=== PATIENT | female | born 1990 | race Caucasian/White ===

== ENCOUNTER 2019-06-01 20:29 | Outpatient (CLI) | payer MEDICAID ==
[~2019-06-01] VITALS: Ht 167.6 cm; Wt 98.9 kg
[2019-06-01 20:49] LABS: MICROSCOPIC INDICATED
[2019-06-01 20:53] VITALS: BP 123/78
[2019-06-01 21:02] LABS: AMPHETAMINE SCREEN, URINE Negative (Negative); BARBITURATE SCREEN, URINE Negative (Negative); BENZODIAZEPINE SCREEN, URINE Negative (Negative); CANNABINOID SCREEN, URINE Negative (Negative); COCAINE SCREEN, URINE Negative (Negative); METHADONE SCREEN, URINE Negative (Negative); OPIATE SCREEN, URINE Negative (Negative)
== END 2019-06-01 21:30 | disposition home or self-care (01) ==
LOC: LDOP 20:29
PROVIDERS: ATTEND Student in an Organized Health Care Education/Training Program
DX: O36.8130 Decreased fetal movements, third trimester, not applicable or unspecified (principal); Z3A.40 40 weeks gestation of pregnancy; Z88.0 Allergy status to penicillin
CPT/HCPCS: 59025; 80307; 81001; 87086; 99201; G0463

== ENCOUNTER 2019-06-17 19:16 | Inpatient (IN) | payer MEDICAID ==
[~2019-06-17] VITALS: Ht 167.6 cm; Wt 97.8 kg
[2019-06-17 19:30] VITALS: BP 128/87
[2019-06-17 19:45] VITALS: BP 128/87
[2019-06-17 20:27] LABS: MICROSCOPIC INDICATED
[2019-06-17 20:30] LABS: ALANINE AMINOTRANSFERASE 168 U/L (12-78); ANION GAP 9 mmol/L (5-15); CHLORIDE 105 mmol/L (98-107); CREATININE 1.06 mg/dL (0.55-1.02)
[2019-06-17 20:32] LABS: AMPHETAMINE SCREEN, URINE Negative (Negative); BARBITURATE SCREEN, URINE Negative (Negative); BENZODIAZEPINE SCREEN, URINE Negative (Negative); CANNABINOID SCREEN, URINE Negative (Negative); COCAINE SCREEN, URINE Negative (Negative); METHADONE SCREEN, URINE Negative (Negative); OPIATE SCREEN, URINE Negative (Negative); PROTEIN/CREATININE RATIO,URINE 249 (0-200); TOTAL PROTEIN,URINE RANDOM 42 mg/dL (0-12)
[2019-06-17 20:32] LABS: ALKALINE PHOSPHATASE 246 U/L (45-117); BILIRUBIN, DIRECT < 0.1 mg/dL (0.1-0.2); BILIRUBIN,TOTAL 0.2 mg/dL (0.2-1.0)
[2019-06-17] MEDS ORDERED: OXYTOCIN 30U/ 0.9% NaCL 500ML 500 ML IV ONE (21:07)
[2019-06-17] MEDS: D5%-LACTATED RINGERS 1,000 ML IV SCH (21:07)
[2019-06-17] MEDS ORDERED: MAGNESIUM SULF. PMX 20GM/500ML 500 ML IV SCH (21:07)
[2019-06-17] MEDS ORDERED: OXYTOCIN 30U/ 0.9% NaCL 500ML 500 ML IV PRN (21:07)
[2019-06-17 21:09] LABS: BASOPHILS % (AUTO) 0 % (0-1); EOSINOPHILS # (AUTO) 0.01 x10^3/uL (0-0.4); EOSINOPHILS % (AUTO) 0 % (1-7); LYMPHOCYTES # (AUTO) 1.53 x10^3/uL (1-3.4); LYMPHOCYTES % (AUTO) 26 % (22-44); MD MORPH REVIEW ONLY; MEAN CORPUSCULAR HEMOGLOBIN 26.3 pg (27.0-34.8); MEAN CORPUSCULAR HGB CONC 33.3 g/dL (32.4-35.8); MEAN CORPUSCULAR VOLUME 78.9 fL (80-100); MEAN PLATELET VOLUME 11.9 fL (7.4-10.4); MONOCYTES # (AUTO) 0.25 x10^3/uL (0.2-0.8); MONOCYTES % (AUTO) 4 % (2-9); NEUTROPHILS # (AUTO) 4.09 x10^3/uL (1.8-6.8); NEUTROPHILS % (AUTO) 70 % (42-75); PLATELET COUNT 145 x10^3/uL (130-400); RED CELL DISTRIBUTION WIDTH 14.6 % (9.6-15.2)
[2019-06-17 21:11] LABS: HYPOCHROMIA 1+; MICROCYTOSIS 1+; POLYCHROMASIA 1+
[2019-06-17 21:12] LABS: <PLATELET ESTIMATE> ADEQUATE; LARGE PLATELETS 1+
[2019-06-17] MEDS ORDERED: MISOPROSTOL 25 MCG TABLET VG PRN (21:30)
[2019-06-17] MEDS ORDERED: SODIUM CITRATE/CITRIC ACID 30 ML UDC PO PRN (21:30)
[2019-06-17] MEDS ORDERED: METOCLOPRAMIDE 5 MG/ML, 2ML IVPush PRN (21:30)
[2019-06-17] MEDS ORDERED: ONDANSETRON 2MG/ML, 2ML IVPush PRN (21:30)
[2019-06-17] MEDS ORDERED: FENTANYL PF 100 MCG/2ML IVPush PRN (21:30)
[2019-06-17] MEDS ORDERED: TERBUTALINE 1 MG/ML, 1ML SQ PRN (21:30)
[2019-06-17] MEDS ORDERED: MAGNESIUM SULFATE PMX 4GM/100M 100 ML IVPB ONE (21:30)
[2019-06-17] MEDS ORDERED: TERBUTALINE 1 MG/ML, 1ML IVPush PRN (21:30)
[2019-06-17] MEDS ORDERED: FENTANYL PF 100 MCG/2ML IV PRN (21:30)
[2019-06-17] MEDS ORDERED: MAGNESIUM SULFATE 3 GM in SODIUM CHLORIDE 0.9% 100 ML IV ONE (22:00)
[2019-06-17] MEDS ORDERED: NEWBORN KIT ONE (22:52)
[2019-06-17] MEDS ORDERED: MISOPROSTOL 200 MCG TABLET ONE (22:52)
[2019-06-17] MEDS ORDERED: LIDOCAINE 1%, 20ML ONE (22:52)
[2019-06-17] MEDS: VANCOMYCIN PMX 1GM/200ML 200 ML IVPB SCH (23:03)
[2019-06-17] MEDS: LACTATED RINGERS 1,000 ML IV SCH (23:03)
[2019-06-17] MEDS ORDERED: MISOPROSTOL 25 MCG TABLET ONE (23:32)
[2019-06-18] MEDS ORDERED: DIPHENHYDRAMINE 50 MG/ML, 1ML ONE (00:10)
[2019-06-18] MEDS ORDERED: DIPHENHYDRAMINE 50 MG/ML, 1ML IVPush PRN ×2 (00:10→08:30)
[2019-06-18] MEDS ORDERED: ACETAMINOPHEN 325 MG TABLET ONE ×3 (02:39→17:31)
[2019-06-18 04:02] LABS: ANION GAP 9 mmol/L (5-15); CHLORIDE 106 mmol/L (98-107)
[2019-06-18 04:06] LABS: ALANINE AMINOTRANSFERASE 154 U/L (12-78); ALKALINE PHOSPHATASE 229 U/L (45-117); BILIRUBIN,TOTAL 0.3 mg/dL (0.2-1.0); CREATININE 1.05 mg/dL (0.55-1.02); TOTAL PROTEIN 5.8 g/dL (6.4-8.2)
[2019-06-18] MEDS: LACTATED RINGERS 1,000 ML IV SCH (04:10)
[2019-06-18 04:26] LABS: MEAN CORPUSCULAR HEMOGLOBIN 25.9 pg (27.0-34.8); MEAN CORPUSCULAR HGB CONC 32.4 g/dL (32.4-35.8); MEAN CORPUSCULAR VOLUME 80.1 fL (80-100); MEAN PLATELET VOLUME 15.2 fL (7.4-10.4); PLATELET COUNT 180 x10^3/uL (130-400); RED BLOOD COUNT 4.06 x10^6/uL (3.82-5.3); RED CELL DISTRIBUTION WIDTH 14.7 % (9.6-15.2)
[2019-06-18 04:28] LABS: BASOPHILS # (AUTO) 0.03 x10^3/uL (0-0.1); BASOPHILS % (AUTO) 0 % (0-1); EOSINOPHILS % (AUTO) 0 % (1-7); LYMPHOCYTES # (AUTO) 2.13 x10^3/uL (1-3.4); LYMPHOCYTES % (AUTO) 26 % (22-44); MD SCAN; MONOCYTES % (AUTO) 5 % (2-9); NEUTROPHILS # (AUTO) 5.68 x10^3/uL (1.8-6.8); NEUTROPHILS % (AUTO) 69 % (42-75)
[2019-06-18] MEDS: D5%-LACTATED RINGERS 1,000 ML IV SCH (05:07)
[2019-06-18] MEDS ORDERED: FENTANYL/BUPIV./NS/PF 250 ML EPIDCONT SCH ×2 (05:41→08:10)
[2019-06-18] MEDS ORDERED: FENTANYL PF 100 MCG/2ML ONE (05:43)
[2019-06-18] MEDS ORDERED: LACTATED RINGERS 1,000 ML IVBOLUS PRN ×2 (06:00→08:30)
[2019-06-18] MEDS ORDERED: FENTANYL PF 500 MCG, BUPIVACAINE/PF 0.5%, 30ML 62.5 ML in SODIUM CHLORIDE 0.9% 177.5 ML EPIDCONT SCH (06:00)
[2019-06-18] MEDS ORDERED: ACETAMINOPHEN 325 MG TABLET PO PRN ×2 (06:30→17:00)
[2019-06-18] MEDS ORDERED: MAGNESIUM SULF. PMX 20GM/500ML 500 ML IV SCH (06:36)
[2019-06-18] MEDS ORDERED: BUPIVACAINE 0.25% ONE (07:43)
[2019-06-18] MEDS ORDERED: LIDOCAINE/PF 1.5%-EPI 1:200K, 30ML ONE (07:43)
[2019-06-18] MEDS ORDERED: LACTATED RINGERS 1,000 ML IV SCH ×2 (08:10→19:30)
[2019-06-18] MEDS ORDERED: NALOXONE 0.4 MG/ML, 1ML IVPush PRN (08:30)
[2019-06-18] MEDS ORDERED: ONDANSETRON 2MG/ML, 2ML IVPush PRN (08:30)
[2019-06-18] MEDS ORDERED: EPHEDRINE 50 MG/ML, 1ML IVPush PRN (08:30)
[2019-06-18] MEDS: VANCOMYCIN PMX 1GM/200ML 200 ML IVPB SCH (09:06)
[2019-06-18] MEDS: ACETAMINOPHEN 325 MG TABLET PO PRN ×2 (11:15→17:36)
[2019-06-18] MEDS ORDERED: MISOPROSTOL 25 MCG TABLET ONE (12:33)
[2019-06-18] MEDS ORDERED: OXYTOCIN 30U/ 0.9% NaCL 500ML 500 ML ONE ×2 (13:14→17:20)
[2019-06-18] MEDS ORDERED: ONDANSETRON 2MG/ML, 2ML ONE (13:56)
[2019-06-18 15:15] LABS: BASOPHILS # (AUTO) 0.03 x10^3/uL (0-0.1); BASOPHILS % (AUTO) 0 % (0-1); EOSINOPHILS # (AUTO) 0.02 x10^3/uL (0-0.4); EOSINOPHILS % (AUTO) 0 % (1-7); LYMPHOCYTES # (AUTO) 1.71 x10^3/uL (1-3.4); LYMPHOCYTES % (AUTO) 19 % (22-44); MD NO; MEAN CORPUSCULAR HEMOGLOBIN 26.5 pg (27.0-34.8); MEAN CORPUSCULAR HGB CONC 32.9 g/dL (32.4-35.8); MEAN CORPUSCULAR VOLUME 80.4 fL (80-100); MEAN PLATELET VOLUME 14.5 fL (7.4-10.4); MONOCYTES % (AUTO) 4 % (2-9); NEUTROPHILS % (AUTO) 77 % (42-75); PLATELET COUNT 189 x10^3/uL (130-400); RED BLOOD COUNT 4.17 x10^6/uL (3.82-5.3); RED CELL DISTRIBUTION WIDTH 14.9 % (9.6-15.2)
[2019-06-18 15:26] LABS: ALBUMIN 2.1 g/dL (3.4-5.0); ANION GAP 11 mmol/L (5-15); CALCIUM 8.5 mg/dL (8.5-10.1); CHLORIDE 104 mmol/L (98-107)
[2019-06-18 15:31] LABS: ALANINE AMINOTRANSFERASE 144 U/L (12-78); ALKALINE PHOSPHATASE 247 U/L (45-117); BILIRUBIN,TOTAL 0.3 mg/dL (0.2-1.0); CREATININE 0.95 mg/dL (0.55-1.02); TOTAL PROTEIN 5.8 g/dL (6.4-8.2)
[2019-06-18] MEDS ORDERED: ONDANSETRON 2MG/ML, 2ML IV PRN (17:00)
[2019-06-18] MEDS ORDERED: METOCLOPRAMIDE 5 MG/ML, 2ML IV PRN (17:00)
[2019-06-18] MEDS ORDERED: SIMETHICONE 80 MG CHEW TAB PO PRN (17:00)
[2019-06-18] MEDS ORDERED: GLYCERIN ADULT SUPP PR PRN (17:00)
[2019-06-18] MEDS ORDERED: CALCIUM GLUCONATE 4.6 MEQ/10 ML IV PRN (17:00)
[2019-06-18] MEDS ORDERED: BISACODYL 10 MG SUPP PR PRN (17:00)
[2019-06-18] MEDS ORDERED: OXYcodone IR 5MG TABLET PO PRN (17:00)
[2019-06-18] MEDS ORDERED: MISOPROSTOL 200 MCG TABLET PR PRN (17:00)
[2019-06-18] MEDS: OXYTOCIN 30U/ 0.9% NaCL 500ML 500 ML IV SCH (17:23)
[2019-06-18] MEDS ORDERED: IBUPROFEN 600 MG TABLET ONE (19:19)
[2019-06-18] MEDS: IBUPROFEN 600 MG TABLET PO PRN (19:22)
[2019-06-18] MEDS: NICOTINE 7 MG/24 HR PATCH.TD24 TD SCH (20:11)
[2019-06-19 00:22] LABS: <PLATELET ESTIMATE> ADEQUATE; BASOPHILS # (AUTO) 0.04 x10^3/uL (0-0.1); BASOPHILS % (AUTO) 0 % (0-1); EOSINOPHILS # (AUTO) 0.21 x10^3/uL (0-0.4); EOSINOPHILS % (AUTO) 2 % (1-7); GIANT PLATELETS 2+; LYMPHOCYTES # (AUTO) 1.54 x10^3/uL (1-3.4); LYMPHOCYTES % (AUTO) 13 % (22-44); MD MORPH REVIEW ONLY; MEAN CORPUSCULAR HGB CONC 32.6 g/dL (32.4-35.8); MEAN CORPUSCULAR VOLUME 79.6 fL (80-100); MEAN PLATELET VOLUME 14.8 fL (7.4-10.4); MONOCYTES % (AUTO) 4 % (2-9); NEUTROPHILS # (AUTO) 9.28 x10^3/uL (1.8-6.8); NEUTROPHILS % (AUTO) 80 % (42-75); PLATELET COUNT 168 x10^3/uL (130-400); RED BLOOD COUNT 4.41 x10^6/uL (3.82-5.3); RED CELL DISTRIBUTION WIDTH 14.6 % (9.6-15.2)
[2019-06-19 00:23] LABS: POLYCHROMASIA 1+
[2019-06-19 00:24] LABS: MICROCYTOSIS 1+
[2019-06-19] MEDS: MAGNESIUM SULF. PMX 20GM/500ML 500 ML IV SCH ×2 (00:57→10:53)
[2019-06-19] MEDS: OXYTOCIN 30U/ 0.9% NaCL 500ML 500 ML IV SCH ×2 (02:41→12:41)
[2019-06-19] MEDS ORDERED: OXYcodone IR 5MG TABLET ONE (03:46)
[2019-06-19 07:39] VITALS: BP 140/93
[2019-06-19] MEDS: PRENATAL VIT/IRON/FA 1 EACH TABLET PO SCH (09:00)
[2019-06-19] MEDS ORDERED: DOCUSATE 100 MG CAPSULE ONE (12:29)
[2019-06-19] MEDS: DOCUSATE 100 MG CAPSULE PO PRN (12:31)
[2019-06-19] MEDS ORDERED: SENNA/DOCUSATE TABLET ONE (12:40)
[2019-06-19] MEDS ORDERED: SENNA/DOCUSATE TABLET PO PRN (13:00)
[2019-06-19 14:40] VITALS: BP 123/73
[2019-06-19] MEDS ORDERED: IBUPROFEN 600 MG TABLET ONE (15:09)
[2019-06-19] MEDS: IBUPROFEN 600 MG TABLET PO PRN (15:11)
[2019-06-19] MEDS ORDERED: ONDANSETRON 4 MG TABLET ONE (15:13)
[2019-06-19 16:27] VITALS: BP 139/90
[2019-06-19] MEDS ORDERED: DIPH,PERTUSS(ACELL),TET VAC/PF NC IM-VACC ONE (19:05)
[2019-06-19 19:15] VITALS: BP 129/89
[2019-06-19] MEDS: NICOTINE 7 MG/24 HR PATCH.TD24 TD SCH (20:14)
[2019-06-20 00:16] VITALS: BP 128/74
[2019-06-20 03:32] VITALS: BP 118/80
[2019-06-20 07:41] LABS: MD NO
[2019-06-20 07:43] LABS: BASOPHILS # (AUTO) 0.02 x10^3/uL (0-0.1); BASOPHILS % (AUTO) 0 % (0-1); EOSINOPHILS % (AUTO) 0 % (1-7); LYMPHOCYTES # (AUTO) 2.67 x10^3/uL (1-3.4); LYMPHOCYTES % (AUTO) 27 % (22-44); MEAN CORPUSCULAR HEMOGLOBIN 25.9 pg (27.0-34.8); MEAN CORPUSCULAR HGB CONC 31.9 g/dL (32.4-35.8); MEAN CORPUSCULAR VOLUME 81.1 fL (80-100); MEAN PLATELET VOLUME 14.3 fL (7.4-10.4); MONOCYTES % (AUTO) 4 % (2-9); NEUTROPHILS # (AUTO) 6.81 x10^3/uL (1.8-6.8); NEUTROPHILS % (AUTO) 69 % (42-75); PLATELET COUNT 187 x10^3/uL (130-400); RED BLOOD COUNT 3.98 x10^6/uL (3.82-5.3)
[2019-06-20 07:50] LABS: ALBUMIN 1.8 g/dL (3.4-5.0); ANION GAP 7 mmol/L (5-15); CHLORIDE 112 mmol/L (98-107)
[2019-06-20 07:54] LABS: ALANINE AMINOTRANSFERASE 82 U/L (12-78); ALKALINE PHOSPHATASE 187 U/L (45-117); BILIRUBIN,TOTAL 0.2 mg/dL (0.2-1.0); CREATININE 0.91 mg/dL (0.55-1.02); TOTAL PROTEIN 5.3 g/dL (6.4-8.2)
[2019-06-20 08:15] VITALS: BP 130/77
[2019-06-20] MEDS: PRENATAL VIT/IRON/FA 1 EACH TABLET PO SCH (10:23)
[2019-06-20] MEDS: ACETAMINOPHEN 325 MG TABLET PO PRN (10:23)
[2019-06-20] MEDS: DOCUSATE 100 MG CAPSULE PO PRN (10:24)
[2019-06-20] MEDS ORDERED: IBUP-1222 PO (15:51)
[2019-06-20] MEDS ORDERED: DOCU-131 PO (15:51)
[2019-06-20] MEDS ORDERED: NICO1PAT31 TD (15:52)
== END 2019-06-20 16:45 | disposition home or self-care (01) | DRG 560 ==
LOC: LDOP 19:16 → LDIP 21:59 → 2NE 06-18 19:58 → 2NW 06-19 16:00
PROVIDERS: ADMIT Student in an Organized Health Care Education/Training Program; ATTEND Student in an Organized Health Care Education/Training Program
PROC: 10E0XZZ Delivery of Products of Conception, External Approach (ICD-10-PCS; principal; 2019-06-18)
PROC: 10907ZC Drainage of Amniotic Fluid, Therapeutic from Products of Conception, Via Natural or Artificial Opening (ICD-10-PCS; 2019-06-18)
PROC: 10H07YZ Insertion of Other Device into Products of Conception, Via Natural or Artificial Opening (ICD-10-PCS; 2019-06-18)
PROC: 3E0R3BZ Introduction of Anesthetic Agent into Spinal Canal, Percutaneous Approach (ICD-10-PCS; 2019-06-18)
PROC: 00HU33Z Insertion of Infusion Device into Spinal Canal, Percutaneous Approach (ICD-10-PCS; 2019-06-18)
PROC: 3E033VJ Introduction of Other Hormone into Peripheral Vein, Percutaneous Approach (ICD-10-PCS; 2019-06-18)
PROC: 0KQM0ZZ Repair Perineum Muscle, Open Approach (ICD-10-PCS; 2019-06-18)
DX: O60.14X0 Preterm labor third trimester with preterm delivery third trimester, not applicable or unspecified (principal); D69.6 Thrombocytopenia, unspecified; E66.01 Morbid (severe) obesity due to excess calories; O99.12 Other diseases of the blood and blood-forming organs and certain disorders involving the immune mechanism complicating childbirth; O99.354 Diseases of the nervous system complicating childbirth; O14.14 Severe pre-eclampsia complicating childbirth; O24.429 Gestational diabetes mellitus in childbirth, unspecified control; O99.214 Obesity complicating childbirth; O77.0 Labor and delivery complicated by meconium in amniotic fluid; O70.1 Second degree perineal laceration during delivery; O70.0 First degree perineal laceration during delivery; G43.909 Migraine, unspecified, not intractable, without status migrainosus; F17.203 Nicotine dependence unspecified, with withdrawal; O99.334 Smoking (tobacco) complicating childbirth; Z3A.35 35 weeks gestation of pregnancy; Z37.0 Single live birth; Z79.84 Long term (current) use of oral hypoglycemic drugs; Z83.3 Family history of diabetes mellitus
CPT/HCPCS: J3490 ×2; 36415; 80053; 80307; 81001; 82248; 82570; 82803; 82962; 83615; 83735; 84156; 84550; 85025; 86592; 86850; 86900; G0378; J2405; J3010; J3370; J3475; J1200; J2590; J7120